=== PATIENT | male | born 1960 | race Caucasian/White ===

== ENCOUNTER 2023-09-19 14:03 | Outpatient (RCR) | payer MEDICARE, SELFPAY ==
--- NOTE | 2023-09-19 15:16 | PTOPEVAL1 ---
Assessment and note entered by Can Delgado Evaluation Information Assessment Status Evaluation Diagnosis low back pain Onset 08/15/23 Subjective Information Pt. reoprts that he was reaching into the trunk of his car and felt a pinch in the left side of the back. He reports that after 1 hour the pain became more intense and was radiating into the left thigh. He reports that the only way he could walk was to bend forward. He reports that he has had some mild low back pain previously, but never had to have treatment. He reports that he has improved over the past couple weeks. He reports that he feels he has plateaued in regards to his recovery. He reports that he sits a lot for work. He states that pain is most notable in the evening. He states that he is taking hydrocodone during the night to try and sleep. He reports that he has no trouble getting out of bed. He reports that he has been using heat and ice to decrease his pain. He reports that he wakes a couple times through the night due to pain. He reports that he can stand for about 1 hour before pain will increase. He reports that his goal is to decrease his low back pain. Reported Pain Level Pain Score 3: Self Report Assessment PT Clinical Summary Pt. is a 63 year old male who enters the clinic with back pain. He currently presents with impaired postural awareness, proximal l.e. weakness greater on the left, impaired flexibility and pain. Continued skilled PT is indicated in order to address these areas to allow for improved IADL performance. Plan of Care Interventions Electrical Stimulation,Hot Pack/Cold Pack,Manual Therapy,Mechanical Traction,Neuro Re-education, Patient/Caregiver Educati,Therapeutic Activities, Therapeutic Exercise PT Services Indicated Yes Treatment Frequency and 2x/week x 8 visits Duration These treatments will address the objective and functional deficits as defined above. The patient will be advanced safely and appropriately in order for the patient to progress towards his/her prior level of function. Additional exercises will be introduced and as well as a comprehensive home exercise program upon discharge, if needed, ?to ensure carryover of functional gains achieved in the clinic. This treatment plan has been reviewed and agreement upon by the patient.
--- NOTE | 2023-09-19 15:16 | OPREHPOC ---
Outpatient Therapy Plan of Care This is a Multidisciplinary Plan of Care that may contain components documented by all disciplines (PT, OT, and ST.) PT Problem 1 PT Problem #1 Knowledge Deficit PT Goal 1 Goal Independent with a HEP addressing core strength and trunk mobility. Target Visit 2 PT Problem 2 PT Problem #2 Impaired Flexibility PT Goal 1 Goal Present at 10 degrees from full knee extension on right and left with the 90/90 test to improve postural awareness PT Problem 3 PT Problem #3 Impaired Functional Mobil PT Goal 1 Goal Pt. will present with 20% improvement in his Modified Oswestry Score Target Visit 8 PT Problem 4 PT Problem #4 Impaired Strength PT Goal 1 Goal Improve proximal l.e. strength to 4+/5 or greater in all muscle groups to allow for improved pelvic stability. Target Visit 8
--- NOTE | 2023-10-27 13:32 | OPREHPOC ---
Outpatient Therapy Plan of Care This is a Multidisciplinary Plan of Care that may contain components documented by all disciplines (PT, OT, and ST.) PT Problem 1 PT Problem #1 Knowledge Deficit PT Goal 1 Goal Independent with a HEP addressing core strength and trunk mobility. Target Visit 2 Progress Met PT Problem 2 PT Problem #2 Impaired Flexibility PT Goal 1 Goal Present at 10 degrees from full knee extension on right and left with the 90/90 test to improve postural awareness Progress Not Met PT Problem 3 PT Problem #3 Impaired Functional Mobil PT Goal 1 Goal Pt. will present with 20% improvement in his Modified Oswestry Score Target Visit 8 Progress Met PT Problem 4 PT Problem #4 Impaired Strength PT Goal 1 Goal Improve proximal l.e. strength to 4+/5 or greater in all muscle groups to allow for improved pelvic stability. Target Visit 8 Progress Partially Met
--- NOTE | 2023-10-27 13:32 | PTOPDC ---
Assessment and note entered by JT File, PT Evaluation Information Assessment Status Discharge Diagnosis low back pain Onset 08/15/23 Subjective Information patient reports he feels improved. he reports he has little to no pain. he reports the pain has not reached more than 2/10 in the last week. he reports he does get fatigued and sore with exercises. Assessment PT Clinical Summary mr. crowell presents to skilled PT for his 8th skilled therapy visit. his pain is now well managed, hip strength is improved, and patient has returned to all prior level activities. he has made progress towards goals, and only lacks full achievement of goals in hamstrings length and proximal hip strength. he is ready to DC skilled PT today, and will continue with [facility] independent Plan of Care PT Services Indicated Yes
== END 2023-10-12 16:27 | disposition home or self-care (01) ==
LOC: CHSPT 14:03
DX: S39.012D Strain of muscle, fascia and tendon of lower back, subsequent encounter (principal); M54.16 Radiculopathy, lumbar region
CPT/HCPCS: 97014; 97110; 97112; 97140; 97161; G0283